=== PATIENT | female | born 1995 ===

== ENCOUNTER 2016-07-14 10:13 | Emergency (ER) | payer OTHER ==
[2016-07-14 11:27] VITALS: BP 129/63
--- NOTE | 2016-07-14 11:31 | UC ---
Throat Pain/Nasal Tyler HPI - History of Current Complaint Chief Complaint: UCRespiratory Stated Complaint: SORE THROAT Time Seen by Provider: 07/14/16 11:21 Hx Obtained From: Patient Hx Last Menstrual Period: one week ?: No Onset/Duration: Gradual Onset, Lasting Days, Still Present Severity: Mild Pain Intensity: 3 Pain Scale Used: 0-10 Numeric Cough: None Associated Signs & Symptoms: Positive: Sinus Discomfort, Nasal Discharge - Allergies/Home Medications Allergies/Adverse Reactions: Allergies Allergy/AdvReac Type Severity Reaction Status Date / Time Adolph trees Allergy Unknown Uncoded 07/14/16 11:15 Reaction Details Home Medications: Home Medications Ibuprofen TAB* [Advil TAB*] 400 mg PO ONCE PRN 07/14/16 [History Confirmed 07/14] Multiple Vitamins W/ Minerals [Emergen-C Vitamin C] 1 william PO DAILY 07/14/16 [ History Confirmed 07/14/16] [id number] [Nyquil Severe Cold/Flu 5-6.25-10-325 mg/15Ml] 1 liq PO BEDTIME PRN 07/14/16 [History Confirmed 07/14/16] PMH/Surg Hx/FS Hx/Imm Hx Previously Healthy: No - mono in high school - Surgical History Surgical History: None - Family History Known Family History: Positive: None Family History: no cardiovascular issues in family lineage - Social History Occupation: Student Lives: With Family Alcohol Use: Weekly Alcohol Amount: 5 Substance Use Type: None Smoking Status (MU): Never Smoked Tobacco Review of Systems Constitutional: Chills, Fatigue Skin: Negative Eyes: Negative ENT: Sore Throat Respiratory: Negative Cardiovascular: Negative Gastrointestinal: Negative Genitourinary: Negative Motor: Negative Neurovascular: Negative Musculoskeletal: Negative Neurological: Negative Psychological: Negative All Other Systems Reviewed And Are Negative: Yes Physical Exam Triage Information Reviewed: Yes Appearance: Well-Appearing, No Pain Distress, Well-Nourished Vital Signs: Initial Vital Signs Temp 98.8 F 07/14/16 11:08 Pulse 75 07/14/16 11:08 Resp 18 07/14/16 11:08 BP 129/63 07/14/16 11:08 Pulse Ox 100 07/14/16 11:08 Vital Signs Reviewed: Yes Eye Exam: Normal Eyes: Positive: Conjunctiva Clear ENT Exam: Other ENT: Positive: Hearing grossly normal, Pharyngeal erythema, TMs normal. Negative: Nasal congestion, Nasal drainage, Tonsillar swelling, Tonsillar exudate, Trismus, Muffled/hoarse voice Dental Exam: Normal, Other Neck exam: Other Neck: Positive: Supple, Nontender, Enlarged Nodes @ - left anterior cervical has always been enlarged after mono in high school--pcp is following Respiratory Exam: Normal Respiratory: Positive: Chest non-tender, Normal breath sounds, No respiratory distress, No accessory muscle use Cardiovascular Exam: Normal Cardiovascular: Positive: RRR, No Murmur, Pulses Normal, Brisk Capillary Refill Musculoskeletal Exam: Normal Musculoskeletal: Positive: Strength Intact, ROM Intact Neurological Exam: Normal Neurological: Positive: Alert, Muscle Tone Normal Psychological Exam: Normal Skin Exam: Normal Diagnostics - Laboratory Diagnostic Studies Completed/Ordered: RST (-) Throat Pain/Nasal Course/Dx - Course Assessment/Plan: Tylenol, ibuprofen, otc throat soothing treatments, follow with [facility] re-check prn - Differential Dx/Diagnosis Differential Diagnosis/HQI/PQRI: Pharyngitis, Sinusitis, URI Provider Diagnoses: Viral pharyngitis Discharge - Discharge Plan Condition: Stable Disposition: HOME Patient Education Materials: Pharyngitis (ED), Viral Syndrome (ED) Referrals: Non Staff,Doctor [Primary Care Provider] - Additional Instructions: Follow at [facility] or return as needed
== END 2016-07-14 12:15 | disposition home or self-care (01) ==
LOC: UCCORT 10:13
DX: J02.9 Acute pharyngitis, unspecified (principal)
CPT/HCPCS: 87651; 99201; G0463